=== PATIENT | female | born 1960 | race Caucasian/White ===

== ENCOUNTER → 2017-12-11 | Outpatient (REF) ==
[~2017-12-11] MED LIST: AMIT-108 PO; AMOX500T10 PO; AZIT-1 PO; AZIT-17 PO; HYDR-385 PO; LIDO20SO21 MM
[2017-12-11 09:04] LABS: LDL CHOLESTEROL 104 mg/dl
== END ==
DX: Z02.9 Encounter for administrative examinations, unspecified (principal)

== ENCOUNTER → 2017-12-16 | Outpatient (CLI) | payer OTHER ==
--- NOTE | 2017-12-17 10:29 | RADIOLOGY IMAGING REPORT ---
FACILITY: [facility] - [place] PATIENT NAME: RADHA DAVIS : [id number] MR: [id number] V: [id number] EXAM DATE: ORDERING PHYSICIAN: KANDI SALGUERO TECHNOLOGIST: Alina Levy PROCEDURE:BILATERAL DIGITAL SCREENING MAMMOGRAM WITH CAD ASSISTED INTERPRETATION & 3D TOMOSYNTHESIS COMPARISON:Prior mammograms 05/04/14, 12/10/12, 07/25/11. INDICATIONS:SCREENING FINDINGS: Small amount of fibroglandular tissue is seen throughout the breasts. The parenchymal pattern has remained stable allowing for difference in mammographic technique & patient positioning. There is no evidence of malignant appearing mass, malignant appearing calcifications or other secondary sign of malignancy in either breast. DIAGNOSTIC CATEGORY 1--NEGATIVE. RECOMMENDATIONS: ROUTINE MAMMOGRAM AND CLINICAL EVALUATION. IMPRESSION: BIRADS 1: Negative No significant abnormality is seen. Dictated by: Linda Estrella M.D. on 12/16/2017 at 16:38 Transcribed by: HEMA on 12/17/2017 at 9:15 Approved by: Linda Estrella M.D. on 12/17/2017 at 10:28 [facility]
== END ==
LOC: MAMO 01:21
PROVIDERS: ATTEND Nurse Practitioner Family
DX: Z12.31 Encounter for screening mammogram for malignant neoplasm of breast (principal)
CPT/HCPCS: 77063; 77067

== ENCOUNTER → 2018-03-05 | Outpatient (CLI) | payer OTHER ==
[~2018-03-05] MED LIST changes: +LINA290C PO
--- NOTE | 2018-03-06 11:19 | EKG ---
FACILITY: [facility] PATIENT NAME: RADHA DAVIS : [id number] MR: [id number] V: [id number] EXAM DATE: ORDERING PHYSICIAN: FRANCES CEE TECHNOLOGIST: BART/RAJESH Test Reason : CHEST PRESSURE Blood Pressure : / mmHG Vent. Rate : 070 BPM Atrial Rate : 070 BPM P-R Int : 140 ms QRS Dur : 072 ms QT Int : 396 ms P-R-T Axes : 042 025 060 degrees QTc Int : 427 ms Normal sinus rhythm Normal ECG No previous ECGs available Confirmed by DEANGELO GASTELUM ([id number]) on 03/08/2018 4:55:39 PM Referred By: JAYE Confirmed By:DEANGELO GASTELUM
== END ==
LOC: RESP 14:29
PROVIDERS: ATTEND Nurse Practitioner Family
DX: Z02.9 Encounter for administrative examinations, unspecified (principal)

== ENCOUNTER → 2018-06-10 | Outpatient (CLI) | payer OTHER ==
--- NOTE | 2018-06-10 11:12 | EKG ---
FACILITY: [facility] - [place] PATIENT NAME: RADHA DAVIS : [id number] MR: [id number] V: [id number] EXAM DATE: ORDERING PHYSICIAN: FRANCES CEE TECHNOLOGIST: RAJESH Test Reason : CHEST PAIN Blood Pressure : / mmHG Vent. Rate : 078 BPM Atrial Rate : 078 BPM P-R Int : 144 ms QRS Dur : 070 ms QT Int : 380 ms P-R-T Axes : 047 002 039 degrees QTc Int : 433 ms Normal sinus rhythm Nonspecific ST and T wave abnormality Abnormal ECG When compared with ECG of 05-MAR-2018 13:41, No significant change was found Confirmed by Pawan Oliver ([id number]) on 06/10/2018 7:04:16 PM Referred By: JAYE Confirmed By:Pawan Perez
== END ==
LOC: RESP 10:28
PROVIDERS: ATTEND Nurse Practitioner Family
DX: Z02.9 Encounter for administrative examinations, unspecified (principal)

== ENCOUNTER → 2018-06-29 | Outpatient (CLI) | payer OTHER ==
--- NOTE | 2018-06-29 13:43 | RADIOLOGY IMAGING REPORT ---
FACILITY: [facility] - [place] PATIENT NAME: Isidra Shine : 1960 MR: [id number] V: [id number] EXAM DATE: ORDERING PHYSICIAN: FRANCES CEE TECHNOLOGIST: Location: [facility] Patient: Isidra Shine : 1960 Visit/Account:[id number] Date of Sevice: 06/29/2018 EXAMINATION: Single Isotope SPECT Imaging with Exercise and Gated SPECT Imaging DATE OF EXAMINATION: June 29, 2018 DATE OF INTERPRETATION: June 29, 2018 REQUESTING PHYSICIAN: FRANCES CEE INDICATION: The patient is a 58-year-old female evaluated for chest pain. PROCEDURE: After informed consent the patient received an intravenous injection of 11.9 mCi of Tc-9 9m sestamibi followed at the appropriate time interval by rest imaging. The patient then exercised a ccording to the standard Shady protocol for 3 minutes and 7 seconds achieving 4 METS. Resting heart rate was 70 bpm with a peak heart rate of 155 bpm which is 95 % of maximal predicted heart rate for age. Blood pressure at rest was 155 / 106; blood pressure during exercise was 184 / 116. There was no chest pain during exercise. Exercise was discontinued because of fatigue. Baseline EKG demonstra ajith sinus rhythm. There were no EKG changes of ischemia at peak exercise. Approximately one minute and 30 seconds prior to the termination of exercise, the patient received an intravenous injection of 30.4 mCi of Tc-99m sestamibi followed by stress imaging. RAW DATA: Examination of the summed raw data revealed a fair quality study. MYOCARDIAL PERFUSION: The tomographic images demonstrate normal perfusion rest and stress. GATED IMAGES: The gated images demonstrate normal regional wall motion and thickening, LVEF 67% IMPRESSION: 1. Negative exercise stress ECG for angina or ECG changes of ischemia. Poor functional capacity. 2. Normal myocardial perfusion scan. 3. Normal LV systolic function; LVEF 67%. 4. Hypertension Report Dictated By: Darell Gallegos MD at 06/29/2018 1:32 PM Report E-Signed By: Darell Gallegos MD at 06/29/2018 1:39 PM WSN:[id number]
--- NOTE | 2018-07-01 12:35 | RT STRESS TEST REPORT ---
FACILITY: [facility] - [place] PATIENT NAME: RADHA DAVIS : [id number] MR: [id number] V: [id number] EXAM DATE: ORDERING PHYSICIAN: FRANCES CEE TECHNOLOGIST: Darrian Acquisition Time: 2018-06-29 09:39:26 Total Exercise Time: 00:03:07 Test Indications: Chest Discomfort Medications: None Protocol: ANGELINE 2 Max HR: 155 BPM 95% of Pred: 162 BPM Max BP: 184/116 mmHG Max Work Load: 4.7 METS Impression Negative EKG part of treadmill / Nuclear medicine stress test Resting Hypertension Decreased exercise tolerance Confirmed by DEANGELO GASTELUM ([id number]) on 07/01/2018 12:35:35 PM Referred By: Overread By: DEANGELO GASTELUM
== END ==
LOC: NUC 00:54
PROVIDERS: ATTEND Nurse Practitioner Family
DX: I10 Essential (primary) hypertension (principal)
CPT/HCPCS: 78452; 93017; A9500

== ENCOUNTER → 2018-09-02 | Outpatient (REF) ==
[2018-09-02 07:46] LABS: LDL CHOLESTEROL 139 mg/dl
== END ==
DX: Z02.9 Encounter for administrative examinations, unspecified (principal)

== ENCOUNTER → 2018-10-04 | Outpatient (CLI) | payer OTHER ==
[~2018-10-04] MED LIST changes: +GUAI120L3 PO
== END ==
LOC: LAB 14:35
PROVIDERS: ATTEND Nurse Practitioner Primary Care
DX: R52 Pain, unspecified (principal)
CPT/HCPCS: 87502

== ENCOUNTER → 2018-10-08 | Outpatient (CLI) | payer OTHER ==
[~2018-10-08] MED LIST changes: +Work Note
[2018-10-08 09:10] LABS: PLATELET COUNT, AUTOMATED 166 K/uL (150-450)
== END ==
LOC: LAB 08:46
PROVIDERS: ATTEND Nurse Practitioner Primary Care
DX: R10.11 Right upper quadrant pain (principal)
CPT/HCPCS: 36415; 82040; 82150; 82247; 82310; 82374; 82435; 82565; 82947; 83690; 84075; 84132; 84155; 84295; 84450; 84460; 84520; 85025